=== PATIENT | female | born 1990 | race Caucasian/White ===

== ENCOUNTER 2022-07-14 08:49 | Emergency (ER) | payer OTHER ==
--- OUTSIDE RECORDS SUMMARY | 2022-07-14 08:52 | XMS REPORT | Continuity of Care Document ---
:1990 Author Organization [facility] t Address [address] [facility] [place] [address] Care Team Providers Name Role Phone Unavailable Unavailable Unavailable Problems Condition Condition Condition Status Onset Resolution Last Treating Co mments Source Name Details Category Date Date Treatment Clinician Date IUD check IUD check Diagnosis Active [facility] IUD IUD Problem Active Common (intrauter (intrauter Sp lj ine ine - [facility] device) in device) in [facility] Allergies, Adverse Reactions, Alerts This patient has no known allergies or adverse reactions. Medications This patient has no known medications. Procedures This patient has no known procedures. Encounters Start End Encounter Admission Attending Care Care Encounter Source Date/Time Date/Time Type Type Clinicians Facility Department ID 2017-07-03 2017-07-03 Outpatient Kristyn Murray [id number] Common 15:45:00 15:45:00 [facility] 2017-06-03 2017-06-03 Outpatient Kristyn Murray [id number] Common 15:45:00 15:45:00 [facility] Results This patient has no known results.
[2022-07-14 09:18] LABS: Specific Gravity 1.017 (1.005-1.030)
[2022-07-14 09:19] LABS: Specific Gravity 1.017 (1.005-1.030); Urine Bacteria None Seen /HPF (<20); Urine Bilirubin NEGATIVE (Negative); Urine Blood Negative (Negative); Urine Clarity Clear (Clear); Urine Color Light-Yellow (Yellow); Urine Glucose NEGATIVE (Negative); Urine Protein NEGATIVE (Negative); Urine RBC <5 /HPF (None Seen); Urine Urobilinogen Normal (Normal)
[2022-07-14] MEDS ORDERED: CEFTRIAXONE 1000 MG/VIAL ONE (09:31)
[2022-07-14] MEDS ORDERED: NA CHLORIDE 0.9% 1,000 ML ONE (09:31)
[2022-07-14] MEDS ORDERED: ACETAMINOPHEN 500 MG TAB ONE (09:31)
[2022-07-14 09:43] LABS: Absolute Lymphocytes (CBC) 0.5 K/uL (0.7-4.9); Hematocrit 40.7 % (36.0-45.0); Lymphocytes % 5.8 % (15.3-44.8); MCV 85.7 fL (80-100); MPV 9.9 fL (7.6-11.3); RBC Red Blood Cell Count 4.75 M/uL (3.86-4.86)
[2022-07-14 09:55] LABS: Protime INR 1.08
[2022-07-14 10:01] LABS: Albumin 4.3 g/dL (3.4-5.0); Bilirubin Total 1.1 mg/dL (0.2-1.0); Potassium 3.8 mEq/L (3.5-5.1); Protein, Total 7.7 g/dL (6.4-8.2)
--- NOTE | 2022-07-14 10:45 | EDPHYS ---
Physician Documentation [facility] Name: Natali Morales Age: 32 yrs Sex: Female : 1990 Arrival Date: 07/14/2022 Time: 08:49 Bed 5 Private MD: ED Physician Beka Greer HPI: 07/14 09:19 This 32 yrs old Female presents to ER via Ambulatory with complaints of bs3 Fever, Nausea, Back Pain. 09:19 She reports having urinary symptoms several weeks ago and took Azo with relief however bs3 yesterday developed back pain and fever no nausea no vomiting she denies vaginal bleeding or discharge she states that her symptoms are similar to when she had a kidney infection when she was on review of systems she does endorse a sore throat several days ago but that is currently better. Pain is mild, non radiating. 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 - Social history:: Smoking status: Patient denies any tobacco usage or history of. ROS: 09:19 Constitutional: Positive for fever bs3 09:19 All other systems are negative. Exam: 09:19 Constitutional: This is a well developed, well nourished patient who is awake, alert, bs3 and in no acute distress. Head/Face: Normocephalic, atraumatic. Eyes: Pupils equal round and reactive to light, extra-ocular motions intact. Lids and lashes normal. ENT: mmm, no posterior phyarngeal erythema Neck: Trachea midline, no thyromegaly, no neck stiffness Chest/axilla: Normal chest wall appearance and motion. Nontender with no deformity. No lesions are appreciated. Cardiovascular: Tachycardic no murmur Respiratory: Lungs have equal breath sounds bilaterally, clear to auscultation, no respiratory distress Abdomen/GI: Soft, non-tender, no rebound or guarding Back: Positive right CVA tenderness MS/ Extremity: Pulses equal, no cyanosis. Neurovascular intact. Full, normal range of motion. Neuro: Awake and alert, GCS 15, oriented to person, place, time, and situation. Cranial nerves II-XII grossly intact. Motor strength 5/5 in all extremities. Sensory grossly intact. Psych: Awake, alert, with orientation to person, place and time. Behavior, mood, and affect are within normal limits. 09:55 Sinus tachycardia at [address] elevations or depressions QTc 441 as interpreted by bs3 myself Vital Signs: 08:53 BP 142 / 77; Pulse 124; Resp 20 S; Temp 100.7(O); Pulse Ox 100% on R/A; Weight 97.52 kg aa5 (R); Height 5 ft. 10 in. (R); 09:37 BP 114 / 67; Pulse 117; Resp 18; Pulse Ox 99% on R/A; ld1 10:45 BP 103 / 58; Pulse 93; Resp 18; Pulse Ox 100% on R/A; kr3 10:45 Temp 99.2(O); kr3 08:53 Body Mass Index 30.85 (97.52 kg, 177.8 cm) aa5 MDM: 08:55 Patient medically screened. bs3 09:19 Differential diagnosis: viral Infection, bacterial infection, URI, UTI, Will evaluate bs3 for urinary tract infection possible viral illness given her recent sore throat patient has no vaginal bleeding or discharge we will also evaluate for as she is sexually active without control, given the duration of symptoms and the fact that she had resolution but now has a fever and back pain I considered a perinephric abscess and recommended a CT with IV contrast and we had a shared decision-making conversation regarding this. Data reviewed: vital signs, nurses notes. 09:50 ED course: WBC count is normal I considered a CT scan but she did want to defer at this bs3 point in time patient reviewed her prior antibiotics and she had no response to Macrobid will use cephalosporin. 10:44 ED course: Patient reassessed heart rate improved abdomen soft nontender discussed with bs3 patient return precautions for persistent fever or any other concerns to rule out the perinephric abscess. 07/14 08:56 Order name: Test, Urine; Complete Time: 09:36 3 07/14 08:56 Order name: Urinalysis w/ reflexes; Complete Time: 09:36 3 07/14 09:14 Order name: Blood Culture Adult (2) bs3 07/14 09:14 Order name: CBC with Diff bs3 07/14 09:14 Order name: CMP; Complete Time: 10:10 bs3 07/14 09:14 Order name: Lactate w/ 2H reflex if indic.; Complete Time: 10:44 bs3 07/14 09:14 Order name: Protime (+inr); Complete Time: 10:10 bs3 07/14 09:14 Order name: Ptt, Activated; Complete Time: 10:10 bs3 07/14 09:26 Order name: Urine Culture EDMO 07/14 09:47 Order name: CBC Smear Scan EDMO 07/14 09:49 Order name: Glucose, Ancillary Testing; Complete Time: 09:50 EDMS 07/14 09:14 Order name: EKG; Complete Time: 09:16 bs3 07/14 09:14 Order name: Accucheck; Complete Time: 09:36 bs3 07/14 09:14 Order name: Cardiac monitoring; Complete Time: 09:36 3 07/14 09:14 Order name: EKG - Nurse/Tech; Complete Time: 09:36 3 07/14 09:14 Order name: IV Saline Lock - Large Bore; Complete Time: 09:36 bs3 07/14 09:14 Order name: Labs collected and sent; Complete Time: 09:36 bs3 07/14 09:14 Order name: O2 Per Protocol; Complete Time: 09:18 bs3 07/14 09:14 Order name: O2 Sat Monitoring; Complete Time: 09:18 bs3 07/14 09:14 Order name: Vital Signs; Complete Time: 09:18 bs3 Administered Medications: 09:36 Drug: Acetaminophen PO 1000 mg Route: PO; ld1 09:36 Drug: Rocephin IV 1 grams Route: IV; Rate: bolus; Site: right antecubital; ld1 10:59 Follow up: Response: No adverse reaction; IV Intake: 10ml kr3 09:36 Drug: NS 0.9% IV 1000 ml Route: IV; Rate: 1 bolus; Site: right antecubital; ld1 10:59 Follow up: Response: No adverse reaction; IV Status: Completed infusion; IV Intake: kr3 1000ml Disposition Summary: 07/14/22 10:45 Discharge Ordered Location: Home bs3 Problem: new bs3 Symptoms: have improved bs3 Condition: Stable bs3 Diagnosis - Pyelonephritis acute bs3 Followup: bs3 - With: Private Physician - When: 48 Hours - Reason: Re-evaluation by your physician Discharge Instructions: - Discharge Summary Sheet bs3 - Pyelonephritis, Adult bs3 Forms: - Medication Reconciliation Form bs3 - Thank You Letter bs3 - Antibiotic Education bs3 - Prescription Opioid Use bs3 Prescriptions: - cefpodoxime 200 mg Oral Tablet - take 1 tablet by ORAL route every 12 hours for 10 days with food; 20 tablet; bs3 Refills: 0, Product Selection Permitted Signatures: Dispatcher [employer] Christina Sexton RN RN aa5 Breanne Campos RN RN ld1 Beka Greer MD MD bs3 Krystle Parry RN kr3
--- NOTE | 2022-07-14 10:45 | ER ---
Nurse's Notes [facility] Name: Natali Morales Age: 32 yrs Sex: Female : 1990 Arrival Date: 07/14/2022 Time: 08:49 Bed 5 Private MD: Diagnosis: Pyelonephritis acute Presentation: 07/14 08:53 Chief complaint: Patient states: fever last night, back pain x 2-3 days ago, and nausea aa5 this morning. Pt reports she had burning with urination 2 weeks ago, pt states "I had a kidney infection 7 years ago and this feels about the same". 08:53 Coronavirus screen: fever. Ebola Screen: Patient denies travel to an Ebola-affected [facility] area in the 21 days before illness onset. Initial Sepsis Screen: Does the patient meet any 2 criteria? HR > 90 bpm. Does the patient have a suspected source of infection? Yes: Dysuria/Frequency/Urgency/UTI. Risk Assessment: Do you want to hurt yourself or someone else? Patient reports no desire to harm self or others. Onset of symptoms was July 2022. 08:53 Acuity: PRIYANK 3 aa5 08:53 Method Of Arrival: Ambulatory aa5 Triage Assessment: 10:56 General: Appears in no apparent distress. comfortable, Behavior is calm, cooperative, kr3 appropriate for age. Pain: Complains of pain in back. EENT: No signs and/or symptoms were reported regarding the EENT system. Neuro: Level of Consciousness is awake, alert, obeys commands, Oriented to person, place, time, situation. Cardiovascular: Patient's skin is warm and dry. Respiratory: Airway is patent Respiratory effort is even, unlabored, Respiratory pattern is regular, symmetrical. GI: Reports lower abdominal pain. : Reports urinary frequency. Derm: No signs and/or symptoms reported regarding the dermatologic system. Musculoskeletal: No signs and/or symptoms reported regarding the musculoskeletal system. 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 - Social history:: Smoking status: Patient denies any tobacco usage or history of. Screenin:38 [facility] ED Fall Risk Assessment (Adult) History of falling in the last 3 months, ld1 including since admission No falls in past 3 months (0 pts). Abuse screen: Denies threats or abuse. Denies injuries from another. Nutritional screening: No deficits noted. Tuberculosis screening: No symptoms or risk factors identified. Assessment: 09:38 Reassessment: See triage assessment. ld1 10:45 Reassessment: Patient appears in no apparent distress at this time. Patient and/or kr3 family updated on plan of care and expected duration. Pain level reassessed. Patient is alert, oriented x 3, equal unlabored respirations, skin warm/dry/pink. Vital Signs: 08:53 BP 142 / 77; Pulse 124; Resp 20 S; Temp 100.7(O); Pulse Ox 100% on R/A; Weight 97.52 kg aa5 (R); Height 5 ft. 10 in. (R); 09:37 BP 114 / 67; Pulse 117; Resp 18; Pulse Ox 99% on R/A; ld1 10:45 BP 103 / 58; Pulse 93; Resp 18; Pulse Ox 100% on R/A; kr3 10:45 Temp 99.2(O); kr3 08:53 Body Mass Index 30.85 (97.52 kg, 177.8 cm) aa5 ED Course: 08:51 Patient arrived in ED. mr 08:53 Arm band placed on Patient placed in an exam room, on a stretcher. aa5 08:55 Beka Greer MD is Attending Physician. bs3 08:58 Krystle Parry, MARIANNE is Primary Nurse. kr3 09:08 Triage completed. aa5 09:37 Blood Culture Adult (2) Sent. ld1 09:37 Lactate w/ 2H reflex if indic. Sent. ld1 09:38 Patient has correct armband on for positive identification. Placed in gown. Bed in low ld1 position. Call light in reach. Side rails up X 1. monitoring manager on. Pulse ox on. NIBP on. Door closed. Noise minimized. Warm blanket given. 09:38 No provider procedures requiring assistance completed. Inserted saline lock: 20 gauge ld1 in right antecubital area, using aseptic technique. Blood collected. 10:59 IV discontinued, intact, bleeding controlled, No redness/swelling at site. Pressure kr3 dressing applied. Administered Medications: 09:36 Drug: Acetaminophen PO 1000 mg Route: PO; ld1 09:36 Drug: Rocephin IV 1 grams Route: IV; Rate: bolus; Site: right antecubital; ld1 10:59 Follow up: Response: No adverse reaction; IV Intake: 10ml kr3 09:36 Drug: NS 0.9% IV 1000 ml Route: IV; Rate: 1 bolus; Site: right antecubital; ld1 10:59 Follow up: Response: No adverse reaction; IV Status: Completed infusion; IV Intake: kr3 1000ml Medication: 10:59 VIS not applicable for this client. kr3 Intake: 10:59 IV: 1000ml; Total: 1000ml. kr3 10:59 IV: 10ml; Total: 1010ml. kr3 Outcome: 10:45 Discharge ordered by . bs3 10:58 Discharged to home ambulatory. kr3 10:58 Condition: stable 10:58 Discharge instructions given to patient, Instructed on discharge instructions, follow up and referral plans. medication usage, Demonstrated understanding of instructions, follow-up care, medications, Prescriptions given X 1. 11:00 Patient left the ED. kr3 Signatures: Savannah Dc mr LoveChristina, RN RN aa5 Breanne Campos RN RN ld1 Krystle Parry RN RN kr3 Beka Greer MD MD bs3
[2022-07-14 10:47] LABS: Blood Morphology Comment NOT SEEN (NOT SEEN); Platelet Estimate ADEQ; White Blood Cell Scan OK (OK)
[2022-07-14 11:21] VITALS: BP 103/58; TEMP 99.2; O2SAT 100
--- NOTE | 2022-07-15 14:44 | EKG ---
Test Date: 2022-07-14 Test Time: 09:33:05 Education Technician: BREN MEASUREMENT RESULTS: Intervals: Rate: 113 MT: 184 QRSD: 80 QT: 322 QTc: 441 [place]: P: 62 MT: 184 QRS: 93 T: 49 INTERPRETIVE STATEMENTS: Sinus tachycardia Otherwise normal ECG No previous ECG available for comparison Electronically Signed On 07-15-22 14:43:25 CDT by Flynn Hawkins
== END 2022-07-14 11:00 | disposition home or self-care (01) ==
LOC: ER 08:49
DX: N10 Acute pyelonephritis (principal)
CPT/HCPCS: 96361; 93005; 87040 ×2; 87088; 85025; 81001; 87086; 36415; 81025; 85610; 82947; 83605; 85730; 80053; 96374; 99285; J7030; J0696